=== PATIENT | male | born 1955 | race Caucasian/White ===

== ENCOUNTER 2018-04-20 23:07 | Emergency (ER) | payer SELFPAY ==
[~2018-04-20] VITALS: Ht 167.6 cm; Wt 59.0 kg
[2018-04-20] MEDS ORDERED: ALBUTEROL SULF 0.083% NEB SOLN 3 ML NEB NEB STA (23:08)
[2018-04-20] MEDS ORDERED: IPRATROPIUM BROMIDE 0.02% 2.5 ML NEB NEB ONE (23:15)
[2018-04-20 23:38] LABS: BASOPHILS % 0.3 % (0.0-1.0); EOSINOPHILS # (AUTO) 0.1 (0.0-0.4); EOSINOPHILS % 0.5 % (0.0-6.0); HEMATOCRIT 39.6 % (38.2-49.6); HEMOGLOBIN 13.4 g/dL (14.0-18.0); LYMPHOCYTES # (AUTO) 0.9 (1.0-3.2); LYMPHOCYTES % 7.8 % (18.0-39.1); MEAN CORPUSCULAR HEMOGLOBIN 32.5 pg (28-32); MEAN CORPUSCULAR HGB CONC 33.8 g/dL (31-35); MEAN CORPUSCULAR VOLUME 96.1 fL (81-99); MONOCYTES # (AUTO) 0.6 (0.2-0.8); MONOCYTES % 4.7 % (4.4-11.3); NEUTROPHILS # (AUTO) 10.2 (2.1-6.9); NEUTROPHILS % 86.4 % (38.7-80.0); PLATELET COUNT 310 x10e3/uL (140-360); RED BLOOD COUNT 4.12 x10e6/uL (4.3-5.7); RED CELL DISTRIBUTION WIDTH 15.7 % (11.7-14.4)
[2018-04-20 23:56] LABS: ALANINE AMINOTRANSFERASE 14 IU/L (0-55); ALBUMIN 3.5 g/dL (3.5-5.0); ALBUMIN/GLOBULIN RATIO 1.3 (0.8-2.0); ALKALINE PHOSPHATASE 94 IU/L (40-150); ANION GAP 12.9 mmol/L (8-16); BLOOD UREA NITROGEN 15 mg/dL (7-26); BUN/CREATININE RATIO 20 (6-25); CARBON DIOXIDE 28 mmol/L (22-29); CHLORIDE 102 mmol/L (98-107); CREATINE KINASE 55 IU/L (30-200); CREATININE, SERUM 0.75 mg/dL (0.72-1.25); EST GLOMERULAR FILTRATION RATE > 60 ML/MIN (60-); GLUCOSE 90 mg/dL (74-118); POTASSIUM 3.9 mmol/L (3.5-5.1); SODIUM 139 mmol/L (136-145)
--- NOTE | 2018-04-21 00:08 | Diagnostic Imaging Report ---
EXAM: CHEST SINGLE (PORTABLE), AP 1 view INDICATION: Shortness of breath COMPARISON: None FINDINGS: LINES/TUBES: None LUNGS: Nodular density measuring approximately 2 cm in the left upper lung. Emphysematous changes. PLEURA: No effusions or pneumothorax. HEART AND MEDIASTINUM: The heart is within normal size limits. Ectasia/tortuosity of the thoracic aorta. BONES AND SOFT TISSUES: No acute findings. IMPRESSION: Possible 2 cm left upper lung pulmonary nodule. A CT of the chest with IV contrast is recommended for further evaluation. Signed by: Dr. Licha Hernández M.D. on 04/21/2018 12:05 AM
[2018-04-21] MEDS ORDERED: SODIUM CHLORIDE 0.9% 50ML 50 ML ONE (01:30)
[2018-04-21] MEDS ORDERED: IOPAMIDOL 370 MG/ML 200 ML INFUS..BTL INJ ONE (01:31)
--- NOTE | 2018-04-21 01:32 | Diagnostic Imaging Report ---
EXAM: CT CHEST W INDICATION: Abnormal chest x-ray COMPARISON: None TECHNIQUE: Multidetector CT scanning of the chest was performed. Coronal and sagittal multiplanar reformations were obtained. Routine protocol performed. IV Contrast: 100 cc Isovue-370 CTDIvol has been reviewed. It is below the limits set by the Radiation Protocol Committee (RPC). FINDINGS: LUNGS AND AIRWAYS: The trachea and major bronchi are patent. Bilateral bronchial thickening. Right middle lobe scarring. Calcified granuloma right lung base. There is a 2 x 1.2 x 1.7 cm spiculated subpleural nodule in the posterior aspect of the right upper lung. PLEURA: No effusions or pneumothorax. HEART, MEDIASTINUM, VESSELS: The heart is at the upper limits of normal in size. The ascending aorta measures up to 4 cm and the descending thoracic aorta measures up to 3.2 cm. No mediastinal mass or lymphadenopathy. UPPER ABDOMEN: No acute findings MUSCULOSKELETAL: No suspicious bone lesions. IMPRESSION: 1. A 2 cm spiculated subpleural nodule in the left upper lung is highly suspicious for primary lung cancer. No mediastinal lymphadenopathy or evidence of contralateral disease. 2. Severe emphysema 3. Ectatic and tortuous thoracic aorta. Signed by: Dr. Licha Hernández M.D. on 04/21/2018 1:28 AM
== END 2018-04-21 02:30 | disposition home or self-care (01) ==
LOC: EDBD 23:07 → ER 23:07
DX: R06.00 Dyspnea, unspecified (principal); J44.9 Chronic obstructive pulmonary disease, unspecified; R91.8 Other nonspecific abnormal finding of lung field; F17.210 Nicotine dependence, cigarettes, uncomplicated
CPT/HCPCS: 36415; 71045; 71260; 80053; 82550; 82553; 83880; 84484; 85025; 93005; 99284; Q9967

== ENCOUNTER 2019-05-26 16:43 | Inpatient (IN) | payer SELFPAY ==
[~2019-05-26] VITALS: Ht 167.6 cm; Wt 50.4 kg
--- OUTSIDE RECORDS SUMMARY | 2019-05-26 16:46 | XMS REPORT ---
Author Author [facility] Address Unknown Phone Unavailable Care Team Providers Care Assistant Women'S Soccer Coach Name Role Phone Jadyn SHETTY Unavailable Unavailable Problems This patient has no known problems. Allergies, Adverse Reactions, Alerts This patient has no known allergies or adverse reactions. Medications This patient has no known medications. Results Test Description Test Time Test Comments Text Results Atomic Results Result Comments CT CHEST W 2018-04-21 01:18:00 [place] [address] Patient Name: BROWN ROSENBAUM MR #: [id number] : 1955 Age/Sex: 62/M Req #: [id number] Adm Physician: Ordered by: CELIA SHETTY MD Report #: [id number] Location: ER Room/Bed: Procedure: [id number] CT/CT CHEST W Exam Date: Exam Time: REPORT STATUS: Signed EXAM: CT CHEST W INDICATION: Abnormal chest x-ray COMPARISON: None TECHNIQUE: Multidetector CT scanning of the chest was performed. Coronal and sagittal multiplanar reformations were obtained. Routine protocol performed. IV Contrast: 100 cc Isovue-370 CTDIvol has been reviewed. It is below the limits set by the Radiation Protocol Committee (RPC). FINDINGS: LUNGS AND AIRWAYS: The trachea and major bronchi are patent. Bilateral bronchial thickening. Right middle lobe scarring. Calcified granuloma right lung base. There is a 2 x 1.2 x 1.7 cm spiculated subpleural nodule in the posterior aspect of the right upper lung. PLEURA: No effusions or pneumothorax. HEART, MEDIASTINUM, VESSELS: The heart is at the upper limits of normal in size. The ascending aorta measures up to 4 cm and the descending thoracic aorta measures up to 3.2 cm. No mediastinal mass or lymphadenopathy. UPPER ABDOMEN: No acute findings MUSCULOSKELETAL: No suspicious bone lesions. IMPRESSION: 1. A 2 cm spiculated subpleural nodule in the left upper lung is highly suspicious for primary lung cancer. No mediastinal lymphadenopathy or evidence of contralateral disease. 2. Severe emphysema 3. Ectatic and tortuous thoracic aorta. Signed by: Dr. Ever Hernández M.D. on 04/21/2018 1:28 AM Dictated By: EVER HERNÁNDEZ MD 7 Transcribed By: FARRAH on 04/21/18127 COPY TO: CELIA SHETTY MD CHEST SINGLE (PORTABLE) 2018-04-21 00:02:00 [place] [address] Patient Name: BROWN ROSENBAUM MR #: [id number] : 1955 Age/Sex: 62/M Req #: [id number] Adm Physician: Ordered by: CELIA SHETTY MD Report #: [id number] Location: ER Room/Bed: Procedure: [id number] DX/CHEST SINGLE (PORTABLE) Exam Date: 04/20/18 Exam Time: 9131 REPORT STATUS: Signed EXAM: CHEST SINGLE (PORTABLE), AP 1 view INDICATION: Shortness of breath COMPARISON: None FINDINGS: LINES/TUBES: None LUNGS: Nodular density measuring approximately 2 cm in the left upper lung. Emphysematous changes. PLEURA: No effusions or pneumothorax. HEART AND MEDIASTINUM: The heart is within normal size limits. Ectasia/tortuosity of the thoracic aorta. BONES AND SOFT TISSUES: No acute findings. IMPRESSION: Possible 2 cm left upper lung pulmonary nodule. A CT of the chest with IV contrast is recommended for further evaluation. Signed by: Dr. Ever Hernández M.D. on 04/21/2018 12:05 AM Dictated By: EVER HERNÁNDEZ MD 0005 Transcribed By: FARRAH on 04/21/18 0005 COPY TO: CELIA SHETTY MD
[2019-05-26 17:24] LABS: BASOPHILS # (AUTO) 0.1 (0.0-0.1); BASOPHILS % 0.9 % (0.0-1.0); EOSINOPHILS % 0.6 % (0.0-6.0); HEMATOCRIT 29.6 % (38.2-49.6); HEMOGLOBIN 10.4 g/dL (14.0-18.0); LYMPHOCYTES # (AUTO) 1.2 (1.0-3.2); LYMPHOCYTES % 17.9 % (18.0-39.1); MEAN CORPUSCULAR HEMOGLOBIN 32.9 pg (28-32); MEAN CORPUSCULAR HGB CONC 35.1 g/dL (31-35); MEAN CORPUSCULAR VOLUME 93.7 fL (81-99); MONOCYTES % 15.4 % (4.4-11.3); NEUTROPHILS # (AUTO) 4.3 (2.1-6.9); NEUTROPHILS % 64.5 % (38.7-80.0); PLATELET COUNT 403 x10e3/uL (140-360); RED BLOOD COUNT 3.16 x10e6/uL (4.3-5.7); RED CELL DISTRIBUTION WIDTH 16.8 % (11.7-14.4)
[2019-05-26 17:34] LABS: BILIRUBIN,URINE NEGATIVE (NEGATIVE); CLARITY,URINE SL CLOUDY (CLEAR); COLOR,URINE YELLOW (YELLOW); KETONES,URINE NEGATIVE (NEGATIVE); LEUKOCYTE ESTERASE ,URINE MODERATE (NEGATIVE); NITRITE,URINE NEGATIVE (NEGATIVE); PROTEIN,URINE DIPSTICK NEGATIVE (NEGATIVE); URINE UROBILINOGEN 0.2 mg/dL (0.2 - 1)
[2019-05-26] MEDS ORDERED: IOPAMIDOL 370 MG/ML 200 ML INFUS..BTL INJ ONE ×2 (17:41→21:07)
[2019-05-26 17:43] LABS: ALANINE AMINOTRANSFERASE 10 IU/L (0-55); ALBUMIN 3.3 g/dL (3.5-5.0); ALBUMIN/GLOBULIN RATIO 1.3 (0.8-2.0); ALKALINE PHOSPHATASE 125 IU/L (40-150); ANION GAP 11.7 mmol/L (8-16); BLOOD UREA NITROGEN 10 mg/dL (7-26); BUN/CREATININE RATIO 13 (6-25); CALCIUM 9.4 mg/dL (8.4-10.2); CARBON DIOXIDE 30 mmol/L (22-29); CHLORIDE 97 mmol/L (98-107); CREATININE, SERUM 0.78 mg/dL (0.72-1.25); EST GLOMERULAR FILTRATION RATE > 60 ML/MIN (60-); GLUCOSE 96 mg/dL (74-118); POTASSIUM 3.7 mmol/L (3.5-5.1); SODIUM 135 mmol/L (136-145)
[2019-05-26 17:47] LABS: EPITHELIAL CELLS,URINE RARE /LPF
--- NOTE | 2019-05-26 19:06 | Diagnostic Imaging Report ---
EXAMINATION: CHEST SINGLE (PORTABLE) INDICATION: ^[id number] ^1700 COMPARISON: Chest radiograph 04/20/[address] abdomen and pelvis 05/26/[address] chest 04/21/2018 FINDINGS: AP view TUBES and LINES: None. LUNGS: Hyperinflated lungs with associated severe bilateral emphysematous changes and bilateral apical bullous. Bandlike airspace opacities in both lung bases and right middle lobe, left greater than, stable since 04/21/2018 and suggestive of atelectasis. Right lower lobe calcified granuloma is unchanged. PLEURA: There is a oval shaped lucency within the peripheral right midlung zone at the level of the sixth rib concerning for a small pneumothorax. No pleural effusions. HEART AND MEDIASTINUM: The cardiac silhouette is within normal limits. Tortuous thoracic aorta with mild ectasia of the ascending thoracic segment (as noted on same day CT abdomen and pelvis). BONES AND SOFT TISSUES: No acute osseous lesion. Soft tissues are unremarkable. UPPER ABDOMEN: No free air under the diaphragm. IMPRESSION: Extensive bilateral emphysema with suspected small pneumothorax in the right peripheral midlung zone. Bilateral lower lobes and right middle lobe airspace opacities are stable since CT 04/21/2018 and suggestive of atelectasis. These findings were communicated to Dr. Hoffman on 05/26/2019 at 6:45 PM. Signed by: Dr. Dinora Pope M.D. on 05/26/2019 7:03 PM
--- NOTE | 2019-05-26 19:30 | Diagnostic Imaging Report ---
EXAM: CT Abdomen and Pelvis WITH contrast INDICATION: ^weakness and pain ^[id number] ^1809 COMPARISON: CT chest 04/21/2018 TECHNIQUE: Abdomen and pelvis were scanned utilizing a multidetector helical scanner from the lung base to the pubic symphysis after administration of IV contrast. Coronal and sagittal reformations were obtained. Routine protocol was performed. Scan was performed when during portal venous phase. IV CONTRAST: 100 mL of Isovue-370 ORAL CONTRAST: Water RADIATION DOSE: Total DLP: 176.4 mGy*cm Estimated effective dose: (DLP x 0.015 x size factor) mSv COMPLICATIONS: None FINDINGS: LINES and TUBES: None. LOWER THORAX: Advanced bilateral emphysema. Left lower lobe calcified granuloma. Bandlike atelectasis in both medial lower lobes is unchanged when compared to 04/21/2018. HEPATOBILIARY: No focal hepatic lesions. No biliary ductal dilation. GALLBLADDER: No radio-opaque stones or sludge. No wall thickening. SPLEEN: No splenomegaly. PANCREAS: No focal masses or ductal dilatation. ADRENALS: No adrenal nodules KIDNEYS/URETERS: Kidneys enhance symmetrically. No hydronephrosis. No cystic or solid mass lesions. No stones. GI TRACT: Diffuse fluid-filled loops of the small bowel and colon without dilatation of bowel with thickening. No bowel obstruction. The appendix is not visualized but no inflammatory changes in the right lower quadrant. PELVIC ORGANS/BLADDER: Unremarkable. LYMPH NODES: No lymphadenopathy. VESSELS: The abdominal aorta and pelvic arteries are normal in size and associated with mild nonobstructing atherosclerotic calcifications. The celiac trunk, estimate, and GINNA are widely patent. PERITONEUM / RETROPERITONEUM: No free air or fluid. BONES: Unremarkable. SOFT TISSUES: Unremarkable. IMPRESSION: Diffuse fluid-filled loops of bowel may reflect gastroenteritis. Otherwise, no acute abnormalities in the abdomen and pelvis. Signed by: Dr. Dinora Pope M.D. on 05/26/2019 7:27 PM
--- NOTE | 2019-05-26 19:55 | Diagnostic Imaging Report ---
EXAM: CT Chest WITHOUT contrast 05/26/2019 6:57 PM INDICATION: ^abl findings left side ^[id number] ^1920 COMPARISON: Chest radiograph 05/26/[address] chest 04/21/2018 TECHNIQUE: Chest was scanned utilizing a multidetector helical scanner from the lung apex through the level of the adrenal glands without administration of IV contrast. Absence of intravenous contrast decreases sensitivity for detection of lymphadenopathy and vascular pathology. Coronal and sagittal reformations were obtained. Routine protocol was performed. IV CONTRAST: None COMPLICATIONS: None RADIATION DOSE: Total DLP: 368.6 mGy*cm Estimated effective dose: (DLP x 0.015 x size factor) mSv CTDIvol has been reviewed. It is below the limits set by the Radiation Protocol Committee (RPC). FINDINGS: LINES/ TUBES: None. LUNGS AND AIRWAYS: Interval mild increase in size of the pleural-based left upper lobe mildly spiculated solid nodule on coronary image 74, now measuring 18 x 17 mm compared to 15 x 16 mm on 04/21/2018. Advanced bilateral centrilobular and paraseptal emphysema with multiple bullous changes, measuring up to 4.7 cm in the left apex. Right lower lobe calcified granuloma is unchanged. Small bandlike atelectasis in both medial lower lobes are unchanged. Mild scarring in the right middle lobe has improved since prior exam. Minimal bronchiectasis. PLEURA: The pleural spaces are clear. HEART AND MEDIASTINUM: The thyroid gland is normal. No mediastinal, hilar or axillary lymphadenopathy. The heart is normal in size. There is no pericardial effusion. Stable ectasia of the ascending thoracic aorta (4 cm. Moderate calcifications of the coronary arteries. The main pulmonary artery is normal in size measuring 2.4 cm in diameter. UPPER ABDOMEN: Unremarkable. BONES: The visualized bony thorax is within normal limits. SOFT TISSUES: Unremarkable. IMPRESSION: No pneumothorax. Previously suspected pneumothorax in chest x-ray corresponds to paraseptal emphysema with multiple bullous changes. Mildly interval increase in size of a spiculated left apical solid nodule, measuring now 18 x 17 mm compared to 15 x 16 mm on 04/21/2018. Recommend ambulatory PET CT and pulmonary consultation for further evaluation. Signed by: Dr. Dinora Pope M.D. on 05/26/2019 7:52 PM
--- NOTE | 2019-05-26 20:06 | NUR ---
SPOKE TO SHIRLEY AT [facility]- ETA 30 MIN
--- NOTE | 2019-05-26 20:15 | NUR ---
REPORT ATTEMPTED TO CALL TO [facility]. NO ANSWER FROM RESIDENTIAL
[2019-05-26] MEDS ORDERED: SODIUM CHLORIDE 0.9% 50ML 50 ML ONE (21:07)
--- NOTE | 2019-05-26 21:44 | NUR ---
PATIENT REFUSED IV AND RAISED VOICE AT THIS NURSE WHEN ATTEMPTING TO START AN IV, DR SHETTY INFORMED
[2019-05-26 23:00] VITALS: BP 155/77
--- NOTE | 2019-05-26 23:00 | NUR ---
patient is a new admit that arrived stretcher. patient is awake and talking. patient has refused to have IV access. bed is in lowest position and call mcdonald is within reach. will continue to monitor patient.
[2019-05-26 23:15] VITALS: BP 155/77
[2019-05-27] MEDS ORDERED: ACETAMINOPHEN325 M1 PO (00:16)
[2019-05-27] MEDS ORDERED: FLUPHENAZINE HC10 MG PO (00:16)
[2019-05-27] MEDS ORDERED: FLUOXETINE HCL10 MG PO (00:16)
[2019-05-27] MEDS ORDERED: BENZTROPINE MESY1 MG PO (00:16)
[2019-05-27] MEDS ORDERED: PROAIR HFA INH8.5 GM PO (00:16)
[2019-05-27] MEDS ORDERED: LORAZEPAM0.5 MG PO (00:16)
[2019-05-27] MEDS ORDERED: LACTULOSE20 GM/30 M PO (00:16)
[2019-05-27] MEDS ORDERED: LACTULOSE10 GM/15 M PO (00:16)
[2019-05-27] MEDS ORDERED: METHYLPHENIDATE5 MG PO (00:16)
[2019-05-27] MEDS ORDERED: CARBAMAZEPINE200 MG PO (00:16)
[2019-05-27] MEDS ORDERED: CLONIDINE HCL0.1 MG PO (00:16)
[2019-05-27 04:00] VITALS: BP 165/88
--- NOTE | 2019-05-27 06:53 | NUR ---
report given to day nurse. patient is resting comfortably in bed. bed is in lowest position and call light is within reach.
[2019-05-27 08:02] VITALS: BP 161/96
--- NOTE | 2019-05-27 09:16 | NUR ---
CALLED FACILITY AND SPOKE WITH NURSE EDUARDO SHE STATES PT HAS BEEN REFUSING PSYCH MEDICATIONS AT FACILITY AND DEMANDED TO GO TO HOSPITAL, THEY STATE HE DOES THIS ON OCCASION. WILL COMPLETE RTF SINCE HE IS REFUSING TO SEE MD HERE AND SEND BACK TO FACILITY, [address] [address], CALL REPORT TO [phone]
[2019-05-27] MEDS: ALBUTEROL/IPRATROPIUM 3 ML NEB NEB PRN ×2 (09:19→15:07)
[2019-05-27] MEDS: ALBUTEROL SULFATE HFA 8GM INHALATION AEROSOL INH PRN ×2 (09:21→15:07)
[2019-05-27 09:27] LABS: CHOL/HDL RATIO 4.3 (3.9-4.7)
[2019-05-27 09:48] LABS: FREE T4 (FREE THYROXINE) 0.76 ng/dL (0.8-1.8); THYROID STIMULATING HORMONE 1.076 uIU/mL (0.350-4.940)
[2019-05-27] MEDS ORDERED: LORAZEPAM INJ 2 MG/ML VIAL IV PRN (10:00)
[2019-05-27 12:05] VITALS: BP 154/89
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
[2019-05-27] MEDS ORDERED: POTASSIUM CHLORIDE 20 MEQ TAB CR PO ONE ×2 (13:00→18:00)
[2019-05-27] MEDS ORDERED: FUROSEMIDE INJ 10 MG/ML 4 ML VIAL IV ONE (13:00)
--- NOTE | 2019-05-27 14:39 | NUR ---
CALLED [phone] AND SPOKE WITH SELAM AT [facility], SHE STATES THEY ARE HAVING ISSUES WITH VERIFYING INSURANCE. EXPLAINED TO HER THE PHONE CALL WITH D. WILL CONTACT [facility] TO SEE IF CAN GET BROTHER INFORMATION. SELAM STATES SHE WILL LET ME KNOW IF CAN MOVE FORWARD.
--- NOTE | 2019-05-27 14:53 | NUR ---
CALLED [facility] AND SPOKE WITH DISPATCH [phone] ASKED ABOUT PT IF THEY HAD INFORMATION ON PT OR BROTHER, SHE STATED THAT IT IS A [facility] ADDRESS BUT A [facility] ADDRESS I WILL HAVE TO CALL [phone] AND [employer] TO SEE IF THEY KNOW OF BROTHER AND AND CAN DO A WELL CHECK OR PHONE NUMBER ON BROTHER. CALLED [facility] OFFICE
[2019-05-27] MEDS: FLUPHENAZINE HCL 2.5 MG TAB PO SCH ×2 (15:00→20:23)
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
[2019-05-27 16:07] VITALS: BP 146/86
[2019-05-27] MEDS: LACTULOSE SYRUP 20 GM/30 ML UDC PO SCH (17:00)
[2019-05-27] MEDS: CARBAMAZEPINE 200 MG TAB PO SCH (17:00)
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
--- NOTE | 2019-05-27 19:05 | NUR ---
received report from day nurse. patient is in lying on bed. patient is repeatedly asking for permission to go outside and sit in the sun. will continue to monitor patient.
[2019-05-27 20:00] VITALS: BP 146/76
[2019-05-27 20:08] VITALS: BP 146/76
[2019-05-27] MEDS: LORAZEPAM 0.5 MG TAB PO PRN (20:23)
[2019-05-27] MEDS: BENZTROPINE MESYLATE 1 MG TAB PO SCH (20:23)
[2019-05-27] MEDS: ATORVASTATIN 20 MG TAB PO SCH (20:23)
[2019-05-28] VITALS (9 sets, daily range): BP systolic 119–167; BP diastolic 64–85
[2019-05-28] MEDS: ALBUTEROL SULFATE HFA 8GM INHALATION AEROSOL INH PRN (06:34)
--- NOTE | 2019-05-28 06:37 | NUR ---
report given to day nurse. patient is resting comfortably in bed. bed is in lowest position and call light is within reach.
[2019-05-28] MEDS ORDERED: ONDANSETRON HCL INJ 2MG/ML 2ML 2 MG/ML VIAL IV PRN (08:30)
[2019-05-28] MEDS ORDERED: ACETAMINOPHEN 325 MG TAB PO PRN (08:30)
[2019-05-28] MEDS ORDERED: HYDRALAZINE HCL 20 MG/ML VIAL IV PRN (08:30)
[2019-05-28] MEDS ORDERED: KETOROLAC TROMETHAMINE 30 MG/ML VIAL IV PRN (08:30)
[2019-05-28] MEDS: FLUPHENAZINE HCL 2.5 MG TAB PO SCH ×3 (11:19→19:31)
[2019-05-28] MEDS: LACTULOSE SYRUP 20 GM/30 ML UDC PO SCH ×2 (11:19→15:48)
[2019-05-28] MEDS: CARBAMAZEPINE 200 MG TAB PO SCH ×2 (11:19→15:48)
[2019-05-28 13:10] LABS: INR 0.87; PROTHROMBIN TIME 12.3 seconds (11.9-14.5)
--- NOTE | 2019-05-28 14:30 | NUR ---
Visit made by the Spiritual Care Department Pastoral Visitor, Roosevelt Cristina. PV provided pastoral presence, hospitality, and supportive listening. Pastoral Visitor informed pt of the scope of Web Press Operator Apprentice Services and availability. SHALONDA HOLLIS [facility] Spiritual Care Department O: [phone] Pager: [phone] ([phone] number calling from)
--- NOTE | 2019-05-28 18:54 | NUR ---
RECEIVED REPORT FROM DAY NURSE. PATIENT IS RESTING COMFORTABLY IN BED. BED IS IN LOWEST POSITION AND CALL FERNANDES IS WITHIN REACH. WILL CONTINUE TO MONITOR PATIENT.
[2019-05-28] MEDS: ALBUTEROL/IPRATROPIUM 3 ML NEB NEB PRN (18:55)
[2019-05-28] MEDS: ATORVASTATIN 20 MG TAB PO SCH (19:31)
[2019-05-28] MEDS: MELATONIN 3 MG TAB PO PRN (19:31)
[2019-05-28] MEDS: BENZTROPINE MESYLATE 1 MG TAB PO SCH (19:31)
[2019-05-28] MEDS: LORAZEPAM 0.5 MG TAB PO PRN (19:31)
[2019-05-29] VITALS (8 sets, daily range): BP systolic 115–143; BP diastolic 69–87
[2019-05-29 03:53] LABS: BASOPHILS % 0.7 % (0.0-1.0); EOSINOPHILS # (AUTO) 0.1 (0.0-0.4); EOSINOPHILS % 1.7 % (0.0-6.0); HEMOGLOBIN 9.5 g/dL (14.0-18.0); LYMPHOCYTES % 16.5 % (18.0-39.1); MEAN CORPUSCULAR HEMOGLOBIN 32.3 pg (28-32); MEAN CORPUSCULAR HGB CONC 33.9 g/dL (31-35); MEAN CORPUSCULAR VOLUME 95.2 fL (81-99); MONOCYTES # (AUTO) 1.1 (0.2-0.8); NEUTROPHILS # (AUTO) 3.7 (2.1-6.9); NEUTROPHILS % 61.9 % (38.7-80.0); PLATELET COUNT 326 x10e3/uL (140-360); RED BLOOD COUNT 2.94 x10e6/uL (4.3-5.7)
[2019-05-29 04:09] LABS: ANION GAP 11.1 mmol/L (8-16); BLOOD UREA NITROGEN 13 mg/dL (7-26); BUN/CREATININE RATIO 19 (6-25); CALCIUM 8.9 mg/dL (8.4-10.2); CARBON DIOXIDE 28 mmol/L (22-29); CHLORIDE 99 mmol/L (98-107); CREATININE, SERUM 0.67 mg/dL (0.72-1.25); EST GLOMERULAR FILTRATION RATE > 60 ML/MIN (60-); GLUCOSE 87 mg/dL (74-118); MAGNESIUM 1.8 MG/DL (1.3-2.1); POTASSIUM 4.1 mmol/L (3.5-5.1); SODIUM 134 mmol/L (136-145)
--- NOTE | 2019-05-29 06:56 | NUR ---
REPORT GIVEN TO DAY NURSE. PATIENT IS RESTING COMFORTABLY IN BED. BED IS IN LOWEST POSITION AND CALL LIGHT IS WITHIN REACH.
[2019-05-29] MEDS: ALBUTEROL/IPRATROPIUM 3 ML NEB NEB PRN ×3 (07:00→20:35)
[2019-05-29] MEDS: LACTULOSE SYRUP 20 GM/30 ML UDC PO SCH ×2 (09:10→17:15)
[2019-05-29] MEDS: FLUPHENAZINE HCL 2.5 MG TAB PO SCH ×3 (09:10→21:10)
[2019-05-29] MEDS: CARBAMAZEPINE 200 MG TAB PO SCH ×2 (09:10→17:15)
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
--- NOTE | 2019-05-29 13:40 | NUR ---
Nutrition Intervention Note RD Recommendation(s) for Physician: - Continue current diet and supplement - Pt meets criteria for moderate protein calorie malnutrition Plan of Care: RD following, monitoring for tolerance and adequacy Nutrition reason for involvement: MD Consult- no reason given RD Assessment 05/29: 63 YOM admitted for Principal Problems/Diagnoses: social discord PMH: No H&P in [employer] GI: LBM 05/28 Skin: No breakdown Labs: Na 134, K 4.1, BUN 13, Cr 0.67, Gluc 87, Mg 1.8 Meds: lactulose, lipitor, zofran, ativan Ht: 66 in Wt: 111 lb BMI: 17.9 IBW: 142 lb Malnutrition Evaluation (05/29/19) The patient meets criteria for MODERATE protein-calorie malnutrition. Energy intake: Pt reports good appetite and intake, however pt is poor historian 2/2 mentation Weight loss: 15% wt loss in 1 year- mild Fat loss: Moderate- dark circles around eyes, some skinfold thickness to arm Muscle loss: Moderate- clavicle visible, interosseous Supporting Evidence: Fluid accumulation: None Functional Status: not assessed Nutrition Prescription (Diet Order): Cardiac with Ensure Enlive TID Estimated Nutritional Needs: 4250-1327 calories/day (30-35 kcal/kg CBW) 76-126 g protein/day (1.5-2 g pro/kg CBW) Diet Adequacy: Meeting calorie needs, Meeting protein needs- per current intake Diet Education Needs Assessment: Diet education not indicated at this time Nutrition Care Level: Mod Nutrition Diagnosis: Inadequate energy and protein intake POTATO PANCAKE FRIER related to h/o mental illness and access to food resources as evidenced by progressive wt loss over the past year and not meeting needs POTATO PANCAKE FRIER. Goal: Patient will meet 75-100% of estimated needs by follow up Progress: N/A Interventions: Fat, mineral modified diet, Commercial beverage, Collaboration with other providers Monitoring/Evaluation: Total energy intake, Total protein intake, Modified diet, Liquid supplement Signed: Cindy Grimaldo RD, LD, [facility]
[2019-05-29] MEDS: LORAZEPAM 0.5 MG TAB PO PRN (14:48)
--- NOTE | 2019-05-29 14:55 | NUR ---
patient called to ask to speak to the MD, patient was told the MD will make his rounds and come see him as we are unsure of a specific time. Patient became very agitated and began yelling. supervisor residential notified of patient's current status. will continue to monitor.
--- NOTE | 2019-05-29 16:36 | NUR ---
Spoke with MAT supervisor blood Dmitri who states that pt was denied by [facility], [facility], and [facility]. States the clinical flooring sales manager from the weekend Bernadette Carpenter will re-review pt's clinical and call CM back with update. CM informed Dmitri that per Aylin, LINEN ROOM SUPERVISOR pt is clinically stable for transfer once approved at a facility. Updated Dmitri on pt's financial status - self pay. They will see about possibility of transferring to [facility].
--- NOTE | 2019-05-29 17:23 | NUR ---
Spoke with Bernadette Carpenter with MAT team. She stated that pt was denied at [facility]. [facility] still in review. updated Bernadette on pt's financial status. She states will forward to [facility] and [facility] and request bee bed. Will leave referral to [facility] open at this time since they have not denied yet.
--- NOTE | 2019-05-29 18:56 | NUR ---
Walking rounds done. Patient in NAD. POC discussed. Patient is calm and cooperative at this time. will continue to monitor. Bed in lowest position, locked, bed alarm on and call mcdonald within reach.
[2019-05-29 20:17] LABS: BASOPHILS # (AUTO) 0.1 (0.0-0.1); BASOPHILS % 0.6 % (0.0-1.0); EOSINOPHILS # (AUTO) 0.1 (0.0-0.4); EOSINOPHILS % 0.9 % (0.0-6.0); HEMATOCRIT 28.9 % (38.2-49.6); HEMOGLOBIN 9.8 g/dL (14.0-18.0); LYMPHOCYTES # (AUTO) 1.2 (1.0-3.2); LYMPHOCYTES % 12.6 % (18.0-39.1); MEAN CORPUSCULAR HEMOGLOBIN 32.7 pg (28-32); MEAN CORPUSCULAR HGB CONC 33.9 g/dL (31-35); MEAN CORPUSCULAR VOLUME 96.3 fL (81-99); MONOCYTES # (AUTO) 1.3 (0.2-0.8); NEUTROPHILS # (AUTO) 6.8 (2.1-6.9); NEUTROPHILS % 71.5 % (38.7-80.0); PLATELET COUNT 322 x10e3/uL (140-360); RED CELL DISTRIBUTION WIDTH 16.9 % (11.7-14.4)
--- NOTE | 2019-05-29 20:40 | NUR ---
Requested information faxed to [facility]MAR[facility] Rubin team by Billy Agustin RN. Confirmation in the chart.
[2019-05-29] MEDS: ATORVASTATIN 20 MG TAB PO SCH (21:10)
[2019-05-29] MEDS: MELATONIN 3 MG TAB PO PRN (21:10)
[2019-05-29] MEDS: BENZTROPINE MESYLATE 1 MG TAB PO SCH (21:10)
--- NOTE | 2019-05-30 01:16 | NUR ---
Pt is resting in bed without any complaints. Call mcdonald within reach, and bed alarm on.
[2019-05-30 04:45] VITALS: BP 168/64
[2019-05-30] MEDS: ALBUTEROL/IPRATROPIUM 3 ML NEB NEB PRN ×3 (05:35→13:45)
[2019-05-30 05:43] LABS: BASOPHILS # (AUTO) 0.1 (0.0-0.1); EOSINOPHILS # (AUTO) 0.1 (0.0-0.4); EOSINOPHILS % 1.5 % (0.0-6.0); HEMATOCRIT 29.3 % (38.2-49.6); HEMOGLOBIN 9.7 g/dL (14.0-18.0); LYMPHOCYTES # (AUTO) 1.4 (1.0-3.2); LYMPHOCYTES % 19.5 % (18.0-39.1); MEAN CORPUSCULAR HEMOGLOBIN 32.1 pg (28-32); MEAN CORPUSCULAR HGB CONC 33.1 g/dL (31-35); MONOCYTES % 13.9 % (4.4-11.3); NEUTROPHILS # (AUTO) 4.5 (2.1-6.9); NEUTROPHILS % 63.5 % (38.7-80.0); PLATELET COUNT 336 x10e3/uL (140-360); RED BLOOD COUNT 3.02 x10e6/uL (4.3-5.7); RED CELL DISTRIBUTION WIDTH 16.7 % (11.7-14.4)
[2019-05-30 06:15] LABS: % IRON SATURATION 26 % (15-50); BLOOD UREA NITROGEN 9 mg/dL (7-26); BUN/CREATININE RATIO 11 (6-25); CALCIUM 9.3 mg/dL (8.4-10.2); CARBON DIOXIDE 28 mmol/L (22-29); CHLORIDE 97 mmol/L (98-107); EST GLOMERULAR FILTRATION RATE > 60 ML/MIN (60-); GLUCOSE 128 mg/dL (74-118); IRON 53 ug/dL (65-175); SODIUM 132 mmol/L (136-145); TOTAL IRON BINDING CAPACITY 204 ug/dL (261-478); TRANSFERRIN 146 mg/dL (174-364)
[2019-05-30 06:19] LABS: FERRITIN 141.57 ng/mL (21.81-274.66)
[2019-05-30 07:10] LABS: FOLATE 12.5 ng/mL (7.0-15.4)
[2019-05-30 07:45] VITALS: BP 124/65
[2019-05-30] MEDS ORDERED: ONDANSETRON HCL 4 MG ORAL DISINTEGRATING TAB PO PRN (08:15)
[2019-05-30 08:31] VITALS: BP 124/65
--- NOTE | 2019-05-30 08:49 | NUR ---
CALLED AND SPOKE MARILY AT [facility] TEAM FOR UPDATE, [facility] HAS NOW TURNED DOWN WAITING ON [facility]. THEY NEED UPDATED LABS, VITALS AND EXCLUSIONARY FAXED TO [phone], FAXING.
--- NOTE | 2019-05-30 09:18 | NUR ---
SPOKE WITH WHISKEY FILTERER AND OBTAINED SIGNATURES NEEDED FOR EXCLUSIONARY AND FAXED ALL TO MAT TEAM.
[2019-05-30] MEDS: FLUPHENAZINE HCL 2.5 MG TAB PO SCH (10:01)
[2019-05-30] MEDS: CARBAMAZEPINE 200 MG TAB PO SCH ×2 (10:01→17:00)
[2019-05-30] MEDS: LACTULOSE SYRUP 20 GM/30 ML UDC PO SCH ×2 (10:01→17:00)
--- NOTE | 2019-05-30 10:25 | NUR ---
Follow up visit. Pt. expressed no spiritual or emotional concerns at this time. Reminded pt of availability of oil changer services. Pt expressed appreciation for visit. Followed up with RN. Will continue to follow as able. SHALONDA HOLLIS Senior Hadoop Developer Spiritual Care Department O: [phone] Pager: [phone] ([phone] number calling from)
[2019-05-30 11:46] VITALS: BP 134/75
--- NOTE | 2019-05-30 12:21 | NUR ---
CALLED MAT TEAM FOR UPDATE, THE [facility] HAS NO BEDS AT THIS TIME THEY ARE TRYING AT [facility] AGAIN TO SEE IF THEY HAVE ANY BEDS
[2019-05-30] MEDS ORDERED: LORAZEPAM INJ 2 MG/ML VIAL IM PRN (15:30)
[2019-05-30] MEDS ORDERED: OLANZAPINE 5 MG TAB PO PRN (15:30)
[2019-05-30] MEDS ORDERED: LORAZEPAM 0.5 MG TAB PO PRN (15:30)
[2019-05-30] MEDS ORDERED: HALOPERIDOL LACTATE 5 MG/ML VIAL IM PRN (15:30)
--- NOTE | 2019-05-30 15:57 | NUR ---
PT IS IN AGREEMENT TO RETURN TO FACILITY, HE STATES HE WILL BE ON HIS BEST BEHAVIOR AND WANTS TO GO AND GET HIS STUFF AND BE ASSISTED TO TRANSFER TO [place] OR [place] [facility] SO HIS FAMILY CAN COME VISIT HIM. CONTACTED FACILITY WE NEED TO SEND CLINICALS
--- NOTE | 2019-05-30 15:58 | NUR ---
SPOKE WITH LAURA AT MAT TEAM IN AGREEMENT PT CAN RETURN TO FACILITY IF ANY FURTHER QUESTIONS CAN REACH AT [phone].
[2019-05-30 16:14] VITALS: BP 151/88
--- NOTE | 2019-05-30 16:26 | NUR ---
[facility] FACILITY DISCHARGE INFORMATION PATIENT HAS BEEN ACCEPTED TO: RETURN TO [facility] NAME: [facility] ADDRESS: [address], [place] [address] ACCEPTING MD: LAZ ROOM: 137A NURSE CALL REPORT TO: [phone] THE FOLLOWING DOCUMENTS MUST ACCOMPANY PATIENT FOR TRANSFER: COPIED CHART: CLINICALS CALLED AND VERIFIED WITH DANIELLE
[2019-05-30] MEDS ORDERED: LIPITOR20 MG PO (17:44)
[2019-05-30] MEDS ORDERED: ATIVAN0.5 MG PO (17:44)
[2019-05-30] MEDS ORDERED: ZYPREXA5 MG PO (17:44)
--- NOTE | 2019-05-30 18:55 | NUR ---
Patient discharged back to [facility] via ambulance in stable condition. Report called by previous nurse JEFERSON Romano.
[2019-05-30] MEDS ORDERED: OLANZAPINE 5 MG TAB PO SCH (21:00)
--- NOTE | 2019-05-30 21:48 | Consultation ---
DATE OF CONSULTATION: 05/30/2019 Psychiatric Consultation REASON FOR CONSULTATION: To evaluate the patient's psychosis and mood. HISTORY OF PRESENT ILLNESS: The patient is a 63-year-old male, admitted to the hospital for social discord. Psych is consulted for mood and psychosis as per the medical record. The patient came from detention. He has been refusing psych medication at a facility and demanded to go to the hospital. He reported to staff that he would hurt himself by walking out in traffic. He reported to staff as well that he has history of bipolar and schizophrenia. Med team has been consulted for [facility] hospital. Upon evaluation today, the patient is found to be in the room. He is alert, awake, and oriented to situation, self, place, and time. He is very thin appearing. He is manic with flight of ideas. He is not disorganized. He is not combative at this time. He reports some depression as he wants to go outside of the hospital and just "sit." He reports feeling anxious. He wants to go home. He denies any hallucination. Denies any suicidal or homicidal ideation. No paranoid or delusion elicited at this time. As per nurse, the patient has been calm. However, he reported suicidal ideation and is now waiting for transferring to a [facility] hospital. PAST PSYCHIATRIC HISTORY: The patient reported to staff that he has history of bipolar and schizophrenia. He claims he has attempted suicide once before. He reports drinking alcohol suddenly. He denies any drug use. FAMILY HISTORY: Unknown. SOCIAL HISTORY: The patient lives in a detention. MENTAL STATUS EXAM: The patient is an elderly male. He is alert, awake, and oriented to situation. His mood is anxious and depressed. Affect is blunt. Psychomotor state is restless. Thought process is flight of ideas. No delusion elicited at this time. Memory appears to be grossly intact. Insight and judgment are impaired. CURRENT MEDICATIONS: 1. Albuterol. 2. Lactulose. 3. Prolixin 10 mg p.o. three times a day. 4. Tegretol. 5. Melatonin. 6. Lipitor. 7. Cogentin. 8. Ativan p.r.n. 9. Tylenol. 10. Albuterol. 11. Zofran. 12. Toradol. 13. Hydralazine. 14. Ativan p.r.n. IV. CURRENT LABS: WBC 7.11, RBC 3.02, hemoglobin 9.7, hematocrit 29.3, platelets . Sodium 132, potassium 4, chloride 97, CO2 of 28, BUN 9, and creatinine 0.8. ASSESSMENT: Schizoaffective disorder, bipolar type. PLAN OF TREATMENT: 1. Discontinue Prolixin. 2. Discontinue cogentin. 3. The patient is on Tegretol. 4. Continue melatonin p.r.n. 5. Change Ativan p.r.n. IV to p.r.n. IM. 6. Add Haldol 2 mg IM q.6 hours p.r.n. 7. Add Zyprexa p.r.n. p.o. 8. Add Zyprexa 2.5 mg p.o. at bedtime. 9. Monitor for mood. 10. Supportive therapy. 11. The patient is waiting for inpatient psych. 12. Supportive therapy. Thank you for this consultation. Dictated by Grace Martin PA-C Luis Stout MD QTV/MODL /[id number]
--- NOTE | 2019-05-31 16:27 | Discharge Summary ---
ADMISSION DIAGNOSES: Major depressive disorder, bipolar malaise, chronic obstructive pulmonary disease, anxiety, left lung nodule, moderate calorie-protein malnutrition. DISCHARGE DIAGNOSES: Major depressive disorder, bipolar malaise, chronic obstructive pulmonary disease, anxiety, left lung nodule, moderate calorie-protein malnutrition. Rule out urinary tract infection, rule out hyperammonemia, rule out hypothyroidism, hyperthyroidism. HISTORY: Anxiety, COPD, hypertension, MDD, bipolar. SURGICAL HISTORY: Unable to obtain. FAMILY HISTORY: Unable to obtain. HOSPITAL COURSE: A 63-year-old male sent from [facility] per his request. In the ER, he complains of generalized malaise. Upon admission, the patient is agitated and refusing to speak to me. Per RN, the patient is only here because he wants to go to a different senior living. He was initially discharged on the day of admission, but the MAT team was called and recommended inpatient psych. After a few days, case management was able to get a hold of family who said it is okay to discharge him to a SNF and they can figure out inpatient psych at a later date as there are no beds available now. The patient understands discharge instructions and agrees to plan. Vital signs stable, patient afebrile. Dictated by Aylin Sainz NP MD JAKE Zayas/SHANNAN /[id number]
== END 2019-05-30 19:00 | DRG 885 ==
LOC: ER 16:43 → ERHOLD 22:22 → IMCU 23:19 → OBSVTOIN 05-28 08:27
PROVIDERS: ADMIT Internal Medicine; ATTEND Internal Medicine
DX: F25.0 Schizoaffective disorder, bipolar type (principal); E44.0 Moderate protein-calorie malnutrition; Z68.1 Body mass index [BMI] 19.9 or less, adult; J44.9 Chronic obstructive pulmonary disease, unspecified; F41.9 Anxiety disorder, unspecified; R91.1 Solitary pulmonary nodule; D64.9 Anemia, unspecified
CPT/HCPCS: 36415; 71045; 71250; 74177; 80048; 80053; 80061; 81001; 82140; 82607; 82728; 82746; 83036; 83540; 83605; 83735; 83880; 84439; 84443; 84466; 85025; 85610; 87040; 87086; 93306; 94640; 99284; G0378; Q9967